=== PATIENT | male | born 1945 | race Caucasian/White ===

== ENCOUNTER 2017-09-05 10:02 | Outpatient (CLI) | payer MEDICARE ==
--- NOTE | 2017-09-05 11:42 | RAD ---
TWO VIEWS OF CHEST: 09/05/2017 COMPARISON: None. HISTORY: Congestion of respiratory tract. FINDINGS: No pneumothorax, pleural fluid, focal consolidation, or alveolar edema. There is mild degenerative c hange in the thoracic spine. IMPRESSION: No acute findings. POS: [facility]
== END 2017-09-05 10:03 | disposition home or self-care (01) ==
LOC: MADRAD 10:02
PROVIDERS: ATTEND Obstetrics & Gynecology
DX: J98.8 Other specified respiratory disorders (principal)
CPT/HCPCS: 71020